=== PATIENT | male | born 1965 | race Caucasian/White ===

== ENCOUNTER 2020-05-22 05:30 | Emergency (ER) | payer OTHER, SELFPAY ==
[2020-05-22 05:31] VITALS: BP 178/110; PULSE 84; RESP 18; TEMP 36.6; O2SAT 100; BMI 30.6
--- NOTE | 2020-05-22 05:45 | EKG12_ITS ---
Test Reason : CP Blood Pressure : / mmHG Vent. Rate : 085 BPM Atrial Rate : 085 BPM P-R Int : 192 ms QRS Dur : 116 ms QT Int : 370 ms P-R-T Axes : -02 006 022 degrees QTc Int : 440 ms Sinus rhythm with occasional Premature ventricular complexes Otherwise normal ECG Confirmed by SAM CORTEZ, DEBI ([id number]), supervising editor trailer BUD GARCIA ([id number]) on 05/26/2020 10:47:56 AM Referred By: JOANNA Confirmed By:DEBI VARGAS MD
--- NOTE | 2020-05-22 05:46 | RAD_ITS ---
STUDY: X-RAY CHEST REASON FOR EXAM: Male, 54 years old. Patient has been having palpitations intermittently for about a month. The last day or so the pressure feeling in chest has not gone away TECHNIQUE: Single AP portable view of the chest. COMPARISON: None. FINDINGS: The lungs are clear and expanded. There is no demonstrated pleural abnormality. There is borderline cardiomegaly. Normal mediastinum and greg. Normal visualized pulmonary arteries. There is atherosclerotic tortuosity of the aortic arch and descending thoracic aorta. There are diffuse degenerative changes of the visualized thoracic spine. Normal visualized ribs, clavicles, and shoulders. There is no demonstrated abnormality of the visualized soft tissue structures of the upper abdomen. RAD/Chest 1 View (Portable) IMPRESSION: No demonstrated acute cardiopulmonary process. Electronically Signed: Christina Goodson MD at 6:00 EST Tel , Service support ,
--- NOTE | 2020-05-22 05:46 | ED.DCSUM_ITS ---
History of Present Illness Chief Complaint: Palpitations Narrative: This patient is a 54-year-old male who presents with palpitations. He describes the sensation as fluttering. This has been intermittent for months. It has been worse recently. He had been having it persistently since about 1 AM. At the time of my history and exam it had actually since resolved. He noted that he had several instances of fluttering and then a sensation of relief with resolution. He states it does feel somewhat like anxiety but he does not have anything to be anxious about currently. He denies any chest pain shortness of breath. He states he felt a little dizzy yesterday and had a mild headache yesterday but no headache or dizziness currently. He is concerned because he has been monitoring his blood pressure at home and has been high in the 170s and 180s systolic and 110 diastolic. He is not treated for hypertension. He does have a history of pulmonary embolism and MTHFR mutation which she takes a baby aspirin for. His pulmonary embolism was 11 to 12 years ago. He denies any extremity pain or swelling. Past Medical History - Allergies and Home Meds Allergies/Adverse Reactions: Allergies No Known Allergies Allergy (Verified 05/22/20 05:34) Primary Care Physician: Ange Rose MD [Primary Care Provider] - Past Medical History: - - Pulmonary embolism Smoking Status: Never smoker Review of Systems All systems negative except as indicated General: Denies: Fever Eyes: Denies: Visual changes - bilaterally ENT: Denies: Bilateral ear pain Cardiovascular: Reports: Palpitations. Denies: Chest pain Respiratory: Denies: Dyspnea Gastrointestinal: Denies: Abdominal pain, Nausea, Vomiting Musculoskeletal: Denies: Myalgias, Extremity Pain Skin: Denies: Rash Neurological: Reports: Headache Hematologic: Denies: Easy bruising Allergy: Denies: Uticaria Physical Exam Vital Signs/Narrative: Vital Signs Temp Pulse Resp BP Pulse Ox 05/22/20 05:31 97.8 F 84 18 178/110 H 100 Inital Vital Signs reviewed: Yes General: Well nourished, Well developed Head: Normocephalic Eyes: EOMI ENT: Moist mucous membranes Neck: Supple Cardiovascular: Regular rate, Regular rhythm, No murmurs Respiratory: No distress, CTA bilaterally. Negative for: Rales, Rhonchi, Wheezing Abdomen: Soft, Nontender Extremities: Nontender, No edema Skin: Normal color Neurological: Alert, - - No focal or lateralizing neurological deficits Psychological: Normal affect Diagnostic/Tx/Re-eval Impressions Chest X-Ray 05/22/20 05:46 IMPRESSION: No demonstrated acute cardiopulmonary process. Electronically Signed: Christina Goodson MD at 6:00 EST Tel , Service support , 05/22/20 05:46 CXR [Chest 1 View (Portable)] [RAD] Stat Laboratory Results 05/22/20 05/22/20 05/22/20 Unknown Unknown Unknown WBC 6.6 RBC 5.28 Hgb 15.9 Hct 46.7 MCV 88.4 MCH 30.1 MCHC 34.0 RDW Std Deviation 38.3 RDW Coeff of Clint 11.9 Plt Count 272 MPV 10.4 Immature Gran % (Auto) 0.200 Neut % (Auto) 58.9 Lymph % (Auto) 26.1 [place] % (Auto) 11.0 H Eos % (Auto) 2.3 Baso % (Auto) 1.5 H Absolute Neuts (auto) 3.9 Absolute Lymphs (auto) 1.73 Nucleated RBC % 0 PT 12.3 INR 1.0 D-Dimer Quant (PE/DVT) <= 0.27 Sodium 138 Potassium 3.3 L Chloride 106 Carbon Dioxide 26.0 Anion Gap 6 BUN 16 Creatinine 1.19 Estim Creat Clear Calc 76.08 Est GFR (MDRD) Af Amer 81 Est GFR (MDRD) Non-Af 67 BUN/Creatinine Ratio 13.4 Glucose 123 H Calcium 9.2 Troponin I < 0.015 TSH 2.00 - Medical Decision Making EKG shows sinus rhythm with a single PVC. No acute ischemic changes. Labs are unremarkable. Chest x-ray shows no acute process. Patient's blood pressure did improve without intervention. On reevaluation patient is resting comfortably. We discussed the possibility of an intermittent dysrhythmia. Given that he has been having symptoms for couple of months discussed that he may need further outpatient work-up such as a Holter monitor. He was referred to cardiology. He was also advised to follow-up with his primary care physician. He understands to return for new or worsening symptoms and was advised on specific signs and symptoms which should prompt return here to the emergency department. Patient agreeable to the plan. All questions answered at bedside. Patient discharged. ED Disposition - Plan for ED Patient: Disposition: Home or Assisted Living Diagnosis: Palpitations Instructions: ED Palpitations Referrals: Ange Rose MD [Primary Care Provider] - Altaf Nguyen MD [STAFF PHYSICIAN] -
[2020-05-22 05:54] LABS: Absolute Lymphocyte Count 1.73 X10^3/uL (0.83-4.51); Absolute Neutrophil Count 3.9 X10^3/uL (2.0-7.7); Basophil% 1.5 % (0-1); Eosinophil# 0.15 X10^3/uL; Eosinophils% 2.3 % (0-5); Hematocrit 46.7 % (40-54); Hemoglobin 15.9 g/dL (13.0-16.5); Lymphocyte # 1.73 X10^3/ul (4.0); Lymphocyte % 26.1 % (19-41); Mean Corpuscular Hgb 30.1 pg (27.0-32.0); Mean Corpuscular Volume 88.4 fL (80-94); Mean Platelet Vol. 10.4 fl (6.2-12.0); Monocyte# 0.73 X10^3/uL; NRBC Flagged by Analyzer 0 % (0-5); Neutrophil # 3.91 X10^3/uL (2.7-7.7); Neutrophil % 58.9 % (47-70); Platelet Count 272 K/mm3 (150-450); RBC Distribution Width CV 11.9 % (11.6-14.6); RBC Distribution Width SD 38.3 fl (35.1-43.9); Red Blood Count 5.28 M/mm3 (4.6-6.2); White Blood Count 6.6 K/mm3 (4.4-11.0)
[2020-05-22 05:58] LABS: Prothrombin Time (Protime)PT. 12.3 SECONDS (11.7-14.9)
[2020-05-22 06:01] LABS: D-Dimer Quantitative (DVT/PE) <= 0.27 FEU/ug/m (0.27-0.49)
[2020-05-22 06:13] LABS: Anion Gap 6 (5-15); BUN 16 mg/dL (7-18); BUN/Creat Ratio 13.4 RATIO (10-20); Calcium,Total 9.2 mg/dL (8.5-10.1); Chloride 106 mmol/L (98-107); Creatinine, Serum 1.19 mg/dL (0.70-1.30); EST Glomerular Filtration Rate 67 mL/min (>60); Est Glom Filt Rate - Afr Amer 81 mL/min (>60); Estimated Creatinine Clearance 76.08 ml/min; Glucose 123 mg/dL (74-106); Potassium 3.3 mmol/L (3.5-5.1); Sodium Level 138 mmol/L (136-145)
[2020-05-22 06:15] VITALS: BP 144/101; PULSE 73; RESP 16; O2SAT 99
== END 2020-05-22 06:37 | disposition home or self-care (01) ==
PROVIDERS: Emergency Provider Emergency Medicine; PCP Internal Medicine
DX: R00.2 Palpitations (principal); I49.3 Ventricular premature depolarization; E72.12 Methylenetetrahydrofolate reductase deficiency; R51.9 Headache, unspecified; R42 Dizziness and giddiness; F41.9 Anxiety disorder, unspecified; Z79.82 Long term (current) use of aspirin; Z86.711 Personal history of pulmonary embolism
CPT/HCPCS: 71045; 80048; 84443; 84484; 85025; 85379; 85610; 93005; 99284; A4216

== ENCOUNTER → 2020-05-26 16:33 | Outpatient (CLI) | payer OTHER, SELFPAY ==
[2020-05-22 05:31] VITALS: BMI 30.6
[2020-05-26 18:45] LABS: Magnesium 2.4 mg/dL (1.6-2.6); PSA,Total - Annual Screen 1.24 ng/mL (0.00-4.00)
[2020-05-26 19:10] LABS: Microalbumin,Random Urine 6.9 mg/L (NO RANGE EST.)
== END ==
PROVIDERS: PCP Internal Medicine; Referring Provider Nurse Practitioner; Visit Provider Nurse Practitioner
DX: I10 Essential (primary) hypertension (principal); E87.6 Hypokalemia; Z12.5 Encounter for screening for malignant neoplasm of prostate
CPT/HCPCS: 36415; 82043; 82570; 83735; 84153; G0103

== ENCOUNTER → 2020-06-23 08:43 | Outpatient (CLI) | payer OTHER, SELFPAY ==
--- NOTE | 2020-06-23 08:47 | RDU_ITS ---
Reason For Study: HTN Right Renal Artery Left Renal Artery Right renal artery ostium 73/21 Left renal artery ostium 81/15 RSV/EDV. PSV/EDV. Right renal artery proximal 104/31 Left renal artery proximal PSV/EDV PSV/EDV. 90/31 . Right renal artery mid 115/38 Left renal artery mid 128/49 PSV/EDV. PSV/EDV . Right renal artery distal 112/42 Left renal artery distal 124/51 PSV/EDV. PSV/EDV. Right RAR 1.31. Left RAR 1.45. Right Renal Parenchyma Left Renal Parenchyma Upper Pole Medula 23/9 PSV/EDV. Left upper pole medulla 27/11 Right upper pole medulla EDR 0.39 . PSV/EDV . Right upper pole medulla R.I. Left upper pole medulla EDR 0.41 . 0.61 . Left upper pole medulla R.I. 0.58 . Upper Clifford Cortx 21/10 PSV/EDV. UP Cortex 20/10 PSV/EDV. Right upper pole cortex EDR 0.48 . Left upper pole cortex EDR 0.50 . Right upper pole cortex R.I. 0.51 . Left upper pole cortex R.I. 0.51 . Right lower Pole medulla 26/12 Left lower Pole medulla 25/10 PSV/EDV . PSV/EDV . Right lower pole medulla EDR 0.46 . Left lower pole medulla EDR 0.40 . Right lower pole medulla R.I. Left lower pole medulla R.I. 0.58 . 0.55 . Lower Pole Cortx 18/8 PSV/EDV. Lower Pole Cortex 16/8 PSV/EDV. Left lower pole cortex EDR 0.44 . Right lower pole cortex EDR 0.50 . Left lower pole cortex R.I. 0.58 . Right lower pole cortex R.I. 0.50 . Left Renal Hilar Right Renal Hilar LT Hilar avg 46/18 PSV/EDV . Right Hilar avg 40/16 PSV/EDV. Left hilar acceleration time 50 Right hilar acceleration time 50 m/sec. m/sec. Left Renal Dimensions Right Renal Dimensions Left kidney size 11.04 cm . Right kidney size 10.07 cm . Left cortical dimension 1.86 cm . Right cortical dimension 1.77 cm . Aorta Proximal abdominal aorta 1.81cm x 1.81 cm . Proximal abdominal aorta peak systolic velocity is 88 cm/sec . Distal abdominal aorta 1.90cm x 1.88 cm . Distal abdominal aorta peak systolic velocity is 66 cm/sec . Interpretation Summary Maximal aortic diameter 1.9 x 1.88 cm distally. Less than 60% stenosis bilateral renal arteries Right renal length maintained at 10.07 cm Left renal length maintained at 11.04 cm Ordering Physician: Halie Lauren Referring Physician: Ange Rose Performed By: Maria Antonia Hoskins, NAYELI, RVT
--- NOTE | 2020-06-23 08:48 | ECHOD_ITS ---
Reason For Study: PALPITATIONS Procedure This was a 2D Doppler, Color Flow transthoracic echocardiogram. Exam performed in department. Left Ventricle Normal LV size. Mild concentric left ventricular hypertrophy. Left ventricular systolic function is normal. The estimated ejection fraction is 55 %. Normal diastology for age. No regional wall motion abnormalities noted. Right Ventricle Normal RV size. Normal systolic function. Atria Normal left atrium. Normal right atrium. Patent foramen ovale. Mitral Valve Normal mitral valve. Tricuspid Valve Normal tricuspid valve. Mild tricuspid valve insufficiency. Aortic Valve Trisinus/trileaflet aortic valve. Mild (1+) aortic valve insufficiency. Pulmonic Valve Normal pulmonic valve. Great Vessels Normal aortic root. The pulmonary artery is normal size. Normal inferior vena cava. Pericardium/Pleural No pericardial effusion. Medication 22 gauge I.V. with prn adaptor inserted into right arm. Performed a rapid injection of agitated mix of 9 cc saline and 1cc air to assess for atrial septal defect. MMode/2D Measurements & Calculations LVIDd: 5.0 cm IVSd: 1.2 cm LVOT diam: 2.6 cm LVIDs: 3.5 cm LVPWd: 1.2 cm RVDd: 4.4 cm FS: 30.0 % LVOT area: 5.4 cm2 Ao root diam: 3.9 cm LAV(MOD-bp): 72.7 ml LA A4 area: 21.9 cm2 LAV(MOD-bp) Indexed: 34.1 ml/m2 LAV(MOD-sp2): 82.8 ml LAV(MOD-sp4): 63.5 ml LA dimension(2D): 4.0 cm RA A4 area: 16.1 cm2 Time Measurements MV dec time: 0.21 sec Doppler Measurements & Calculations MV E max reinaldo: 63.1 cm/sec Lat Peak E' Reinaldo: 8.1 cm/sec Med Peak E' Reinaldo: 7.9 cm/sec MV A max reinaldo: 52.1 cm/sec E/E' lat: 7.8 E/E' med: 7.9 MV E/A: 1.2 Ao V2 max: 109.0 cm/sec LV V1 max: 98.6 cm/sec SV(LVOT): 109.6 ml Ao max P.8 mmHg LV V1 max P.9 mmHg Ao V2 mean: 76.6 cm/sec LV V1 mean P.2 mmHg Ao mean P.6 mmHg LV V1 mean: 70.7 cm/sec Ao V2 VTI: 22.9 cm LV V1 VTI: 20.4 cm DEO(I,D): 4.8 cm2 DEO(V,D): 4.9 cm2 PA V2 max: 82.6 cm/sec TR max reinaldo: 208.8 cm/sec TR max P.4 mmHg Interpretation Summary Normal LV size. Mild concentric left ventricular hypertrophy. Left ventricular systolic function is normal. The estimated ejection fraction is 55 %. Normal diastology for age. Patent foramen ovale. Ordering Physician: Halie Lauren Referring Physician: Ange Rose Performed By: Kelley Valdes, NAYELI, RVT
== END ==
PROVIDERS: PCP Internal Medicine; Referring Provider Nurse Practitioner; Visit Provider Nurse Practitioner
DX: I10 Essential (primary) hypertension (principal); R00.2 Palpitations
CPT/HCPCS: 93306; 93975; A4216

== ENCOUNTER → 2020-07-02 09:12 | Outpatient (CLI) | payer OTHER, SELFPAY | PROVIDERS: PCP Internal Medicine; Referring Provider Nurse Practitioner; Visit Provider Nurse Practitioner | DX: R00.2 Palpitations (principal) | CPT/HCPCS: 93225; 93226 ==

== ENCOUNTER → 2020-10-14 09:37 | Outpatient (CLI) | payer OTHER, SELFPAY ==
[2020-08-28 16:20] VITALS: BMI 29.2
--- NOTE | 2020-10-14 13:26 | STRESSREP ---
Stress Test Report Date: 10-14-2020 Procedure: Exercise tolerance test Indications: Palpitations/PVCs Consent: Per the patient Procedure: The patient exercised on a Peña protocol for 13 minutes completing Stage IV and 1 minute of Stage V achieving a peak heart rate of 157 bpm (96% predicted maximal heart rate) with a peak blood pressure 154/74 mmHg and a peak MET capacity of approximately 17 MET's. The baseline ECG demonstrated sinus rhythm. The peak exercise ECG demonstrated no obvious ECG changes. There were no cardiac dysrhythmias pretest, during exercise, or recovery. The functional capacity was considered good. The patient had no complaint of chest discomfort during exercise or recovery. The examination was discontinued secondary to dyspnea and knee discomfort. Impression: 1. Technically adequate (percent predicted maximal heart rate greater than 85%) exercise tolerance test 2. Peak exercise ECG with no obvious ECG change 3. There were no cardiac dysrhythmias during exercise or recovery This note was generated with [employer] software. It may contain incorrect words, spelling, and punctuation that were not noted in checking the note before signing.
== END ==
PROVIDERS: PCP Nurse Practitioner; Referring Provider Internal Medicine Cardiovascular Disease; Visit Provider Internal Medicine Cardiovascular Disease
DX: I49.3 Ventricular premature depolarization (principal); I10 Essential (primary) hypertension; R00.2 Palpitations
CPT/HCPCS: 93017